=== PATIENT | male | born 1965 | race African-American/Black ===

== ENCOUNTER 2018-10-21 16:53 | Emergency (ER) | payer BC ==
[2018-10-21] MEDS ORDERED: traMADol HCl 50 MG TAB ONE (18:01)
== END 2018-10-21 18:05 | disposition home or self-care (01) ==
LOC: ERS 16:53
DX: M54.2 Cervicalgia (principal); I49.9 Cardiac arrhythmia, unspecified; I10 Essential (primary) hypertension; Z79.899 Other long term (current) drug therapy
CPT/HCPCS: 99283

== ENCOUNTER 2019-12-04 14:47 | Outpatient (CLI) | payer OTHER ==
--- NOTE | 2019-12-04 15:17 | ULT ---
Renal ultrasound: 12/04/2019 COMPARISON:None available HISTORY:Evaluate renal cyst TECHNIQUE: Multiplanar grayscale sonographic imaging of the kidneys and urinary bladder obtained. FINDINGS: The right kidney vfhezvac60.5 x 6.6 x 5.8 cm and demonstratesno hydronephrosis. The left kidney bymyettx31.5 x 8.5 x 6.2 cm and demonstratesno hydronephrosis. The urinary bladderappears unremarkable, with a volume of 91 cc. There is a cyst in the medial lower pole of the right kidney measuring 1.9 x 1.8 x 2.2 cm. No solid r enal mass noted on either side. IMPRESSION:Right renal cyst.
== END 2019-12-04 14:48 | disposition home or self-care (01) ==
LOC: BICULT 14:47
PROVIDERS: ATTEND Urology
DX: N28.9 Disorder of kidney and ureter, unspecified (principal); N28.1 Cyst of kidney, acquired
CPT/HCPCS: 76770